=== PATIENT | male | born 1990 | race Caucasian/White ===

== ENCOUNTER 2024-11-18 08:22 | Day surgery (SDC) | payer BC, SELFPAY ==
[2024-11-18] VITALS (8 sets, daily range): BP systolic 125–147; BP diastolic 75–87; PULSE 67–85; RESP 16; TEMP 36.1–36.6; O2SAT 95–100; BMI 30.3
--- NOTE | 2024-11-18 08:47 | EKG12_ITS ---
Test Reason : PRE OP Blood Pressure : */* mmHG Vent. Rate : 67 BPM Atrial Rate : 67 BPM P-R Int : 130 ms QRS Dur : 78 ms QT Int : 392 ms P-R-T Axes : 60 37 35 degrees QTcB Int : 414 ms Normal sinus rhythm Normal ECG No previous ECGs available Confirmed by GALLO CARRANZA, STEVE ([id number]), photograph editor JASMEET PADGETT ([id number]) on 11/19/2024 7:56:27 AM Referred By: Junaid English Confirmed By: STEVE HOLDER MD
--- NOTE | 2024-11-18 08:47 | EKG12_ITS ---
Test Reason : PRE OP Blood Pressure : */* mmHG Vent. Rate : 67 BPM Atrial Rate : 67 BPM P-R Int : 130 ms QRS Dur : 78 ms QT Int : 392 ms P-R-T Axes : 60 37 35 degrees QTcB Int : 414 ms Normal sinus rhythm Normal ECG No previous ECGs available Confirmed by GALLO CARRANZA, STEVE ([id number]), editor in chief JASMEET PADGETT ([id number]) on 11/19/2024 7:56:27 AM Referred By: Junaid English Confirmed By: STEVE HOLDER MD
[2024-11-18] MEDS: Lactated Ringers 1,000 ML 15 ML IV ×2 (09:19→12:32)
[2024-11-18] MEDS: INDOCYANINE GREEN 3.75 MG in Syringe 1.5 ML 999 MG IV (09:19)
--- NOTE | 2024-11-18 09:34 | PCM.PRE.AN2 ---
ASA Classification* ASA Classification ASA Classification: 1 Assessment & Plan Anesthesia* Anesthesia Assessment Anesthesia Assessment: Discussed sedation and/or anesthesia options, risks, benefits, and alternatives with patient/parents/legal guardian/POA. Questions invited. The patient/parents/legal guardian/POA seems to understand and agrees to proceed with anesthesia plan. Reviewed the physical assessment, medical history, allergy history and patient home medications list prior to surgery/procedure/anesthetic and documented any changes. Performed airway and anesthesia risk assessments. Anesthesia Type Anesthesia Type: General History Source History Obtained from:: Patient and Chart Anesthesia Focused Assessment* Temperature: 98 F Pulse Rate: 70 Blood Pressure: 125/75 Respiratory Rate: 16 Pulse Ox: 100 Oxygen Delivery Method: Room Air Airway Assessment Mouth opens: >3 cm Mallampati Score: I Teeth Condition: Intact Neck Range of motion (ROM): Full ROM Labs Anesthesia Preop lab: CBC CHEMISTRY COAG Pre-Assessment Diagnosis/Proposed Procedure Planned Operative Procedure(s): Robotic Cholecystectomy w/grams Anesthesia History Anesthesia History - clinical nutritionist: Anesthesia History - clinical nutritionist Hx Hospitalization No 11/04/24 15:21 Any Problems With Anesthesia No 11/04/24 15:21 Cholinesterase deficiency No 11/04/24 15:21 You/Your Family Experience No 11/04/24 15:21 fever (hyperthermia) with Relationship Recent Exposure to Contagious No 11/18/24 08:55 Disease Does patient have nerve No 11/04/24 15:21 stimulator Patient instructed to have device shut off --Does patient have Pacemaker No 11/18/24 08:55 or ICD? When Was Last Pacemaker Check QUESTION #4 FULL TEXT: You/Your Family Experience fever (hyperthermia) with Anesthesia Last Oral Intake Last Oral intake: Last Oral Intake NPO since 22:30 11/18/24 08:55 Meds taken in AM with sips of water? Meds patient instructed to take am of surgery Any additional information?: Yes NPO since: 06:00 (Patient has sips of water at 6 AM.) Meds taken in AM with sips of water?: No PONV PONV - clinical nutritionist: PONV - clinical nutritionist Female No 11/04/24 15:21 HX of Motion Sickness No 11/04/24 15:21 HX of N/V After Surgery No 11/04/24 15:21 Non-Smoker Yes 11/04/24 15:21 Duration of Surgery greater Yes 11/04/24 15:21 than 60 minutes Number of Risk Factors 2 11/04/24 15:21 PONV Score Moderate Risk 11/04/24 15:21 Height & Weight Height & Weight: Anesthesia: Height & Weight Height 5 ft 10 in 11/18/24 08:55 Weight: 96 kg 11/18/24 08:55 Body Mass Index (BMI) 30.3 11/18/24 08:55 Respiratory Assessment Respiratory Assessment - clinical nutritionist: Respiratory Tract Infection Hx - clinical nutritionist Hx Respiratory Tract Infection No 11/04/24 15:21 STOP Sleep Apnea STOP Sleep Apnea - clinical nutritionist: STOP Sleep Apnea - clinical nutritionist Hx Hypertension No 11/04/24 15:21 Hx Sleep Apnea No 11/04/24 15:21 CPAP BIPAP Do you snore loudly (louder No 11/04/24 15:21 than talking or can be heard Do you often feel tired/ No 11/04/24 15:21 fatigued/ sleepy during daytime? Has anyone observed you stop No 11/04/24 15:21 breathing during sleep? STOP Results Negative 11/04/24 15:21 QUESTION #5 FULL TEXT : Do you snore loudly (louder than talking or can be heard through closed doors)? Tobacco Use History Tobacco Use History - clinical nutritionist: Tobacco Use History - clinical nutritionist Tobacco Use Smoking Status Never smoker 11/04/24 15:21 Hx Tobacco Use No 11/04/24 15:21 Years Smoking Packs Smoked per Day Smoking Cessation Date was within the last 15 years Hx Smoking Cessation Date Hx Smoking Cessation Counseling Hematologic Medial History Hematologic Hx - clinical nutritionist: Hematologic Medical Hx - handkerchief folder Hx of Blood Transfusion No 11/04/24 15:21 Hx of Transfusion in last 3 No 11/04/24 15:21 Months Date of Last Transfusion (if within last 3 months) Ever experience any problems No 11/04/24 15:21 with transfusion(s)? Specify any problems Hx of Preganancy in last 3 N/A 11/04/24 15:21 Months Nurse Filling Out Transfusion VCHRISTIN 11/04/24 15:21 & Questions: Date: 11/04/24 11/04/24 15:21 Time: 15:22 11/04/24 15:21 Patient unable to answer at this time (ie. confused, unrespo /Reproduction History /Reproductive History - clinical nutritionist: /Reproductive Hx- clinical nutritionist Hx Now No 11/04/24 15:21 Gestational Age (in weeks): EDC: Hx Hx Para Hx Section SAB No 11/04/24 15:21 Active Medications Active Medications: Current Medications Generic Name Dose Route Start Last Admin Trade Name Freq PRN Reason Stop Dose Admin Lactated Ringer's 1,000 mls @ 15 mls/hr 11/18/24 08:45 11/18/24 09:19 IV 15 mls/hr .Q48H QUINCY Administration PFSH Medical History Wears glasses Non-smoker Cholelithiasis Anxiety Home Medications ?Medication ?Instructions ?Recorded ?Last Taken ?Type ascorbic acid (vitamin C) 500 mg 500 mg PO QDAY PRN cold symptoms 10/30/24 Unknown History tablet fluvoxamine 100 mg tablet 100 mg PO QHS 10/30/24 Unknown History Allergy/AdvReac Type Severity Reaction Status Date / Time No Known Allergies Allergy Verified 11/18/24 08:54 Family History Grandfather Cancer lymphoma Surgical History S/P tonsillectomy Social History Smoking Status: Never smoker alcohol intake: never Review of Systems (Anesthesia) ROS Narrative System reviewed and no additional complaints, except as documented.
--- NOTE | 2024-11-18 09:34 | PCM.PRE.AN2 ---
ASA Classification* ASA Classification ASA Classification: 1 Assessment & Plan Anesthesia* Anesthesia Assessment Anesthesia Assessment: Discussed sedation and/or anesthesia options, risks, benefits, and alternatives with patient/parents/legal guardian/POA. Questions invited. The patient/parents/legal guardian/POA seems to understand and agrees to proceed with anesthesia plan. Reviewed the physical assessment, medical history, allergy history and patient home medications list prior to surgery/procedure/anesthetic and documented any changes. Performed airway and anesthesia risk assessments. 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 When Was Last Pacemaker Check QUESTION #4 FULL TEXT: You/Your Family Experience fever (hyperthermia) with Anesthesia Last Oral Intake Last Oral intake: Last Oral Intake NPO since 22:30 11/18/24 08:55 Meds taken in AM with sips of water? Meds patient instructed to take am of surgery Any additional information?: Yes NPO since: 06:00 (Patient has sips of water at 6 AM.) Meds taken in AM with sips of water?: No PONV PONV - machine gun mechanic: PONV - machine gun mechanic Female No 11/04/24 15:21 HX of Motion Sickness No 11/04/24 15:21 HX of N/V After Surgery No 11/04/24 15:21 Non-Smoker Yes 11/04/24 15:21 Duration of Surgery greater Yes 11/04/24 15:21 than 60 minutes Number of Risk Factors 2 11/04/24 15:21 PONV Score Moderate Risk 11/04/24 15:21 Height & Weight Height & Weight: Anesthesia: Height & Weight Height 5 ft 10 in 11/18/24 08:55 Weight: 96 kg 11/18/24 08:55 Body Mass Index (BMI) 30.3 11/18/24 08:55 Respiratory Assessment Respiratory Assessment - machine gun mechanic: Respiratory Tract Infection Hx - machine gun mechanic Hx Respiratory Tract Infection No 11/04/24 15:21 STOP Sleep Apnea STOP Sleep Apnea - machine gun mechanic: STOP Sleep Apnea - machine gun mechanic Hx Hypertension No 11/04/24 15:21 Hx Sleep Apnea No 11/04/24 15:21 CPAP BIPAP Do you snore loudly (louder No 11/04/24 15:21 than talking or can be heard Do you often feel tired/ No 11/04/24 15:21 fatigued/ sleepy during daytime? Has anyone observed you stop No 11/04/24 15:21 breathing during sleep? STOP Results Negative 11/04/24 15:21 QUESTION #5 FULL TEXT : Do you snore loudly (louder than talking or can be heard through closed doors)? 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 Specify any problems Hx of Preganancy in last 3 N/A 11/04/24 15:21 Months Nurse Filling Out Transfusion VCHRISTIN 11/04/24 15:21 & Questions: Date: 11/04/24 11/04/24 15:21 Time: 15:22 11/04/24 15:21 Patient unable to answer at this time (ie. confused, unrespo /Reproduction History /Reproductive History - machine gun mechanic: /Reproductive Hx- machine gun mechanic Hx Now No 11/04/24 15:21 Gestational Age (in weeks): EDC: Hx Hx Para Hx Section SAB No 11/04/24 15:21 Active Medications Active Medications: Current Medications Generic Name Dose Route Start Last Admin Trade Name Freq PRN Reason Stop Dose Admin Lactated Ringer's 1,000 mls @ 15 mls/hr 11/18/24 08:45 11/18/24 09:19 IV 15 mls/hr .Q48H QUINCY Administration PFSH Medical History Wears glasses Non-smoker Cholelithiasis Anxiety Home Medications ?Medication ?Instructions ?Recorded ?Last Taken ?Type ascorbic acid (vitamin C) 500 mg 500 mg PO QDAY PRN cold symptoms 10/30/24 Unknown History tablet fluvoxamine 100 mg tablet 100 mg PO QHS 10/30/24 Unknown History Allergy/AdvReac Type Severity Reaction Status Date / Time No Known Allergies Allergy Verified 11/18/24 08:54 Family History Grandfather Cancer lymphoma Surgical History S/P tonsillectomy Social History Smoking Status: Never smoker alcohol intake: never Review of Systems (Anesthesia) ROS Narrative System reviewed and no additional complaints, except as documented.
--- NOTE | 2024-11-18 09:53 | PCM.HP.STD ---
HPI - General General Date of Admission: 11/18/24 Date of Service: 11/18/24 Chief Complaint: Right upper quadrant pain and gallstones HPI Narrative STEVE NG, is a 34 M who presents today for elective robotic cholecystectomy. Patient was in the emergency room several weeks ago with right upper quadrant pain and gallstones. He was discharged home and presented to my office to discuss cholecystectomy. I offered him a robotic cholecystectomy. We discussed the details of the planned procedure and he wished to proceed. [facility] Medical History Wears glasses Non-smoker Cholelithiasis Anxiety Home Medications ?Medication ?Instructions ?Recorded ?Last Taken ?Type ascorbic acid (vitamin C) 500 mg 500 mg PO QDAY PRN cold symptoms 10/30/24 Unknown History tablet fluvoxamine 100 mg tablet 100 mg PO QHS 10/30/24 Unknown History Allergy/AdvReac Type Severity Reaction Status Date / Time No Known Allergies Allergy Verified 11/18/24 08:54 Family History Grandfather Cancer lymphoma Surgical History S/P tonsillectomy Social History Smoking Status: Never smoker alcohol intake: never Vital Signs Vital Signs Vital Signs: 11/18/24 08:55 11/18/24 08:55 11/18/24 09:39 Temperature 98 F 98 F Temperature Source Temporal Pulse Rate 70 70 Respiratory Rate 16 16 Respiratory Pattern Normal Blood Pressure 125/75 H 125/75 H Blood Pressure Mean 91 Blood Pressure Source Monitor Blood Pressure Position Semi-Fowlers Blood Pressure Location Left Arm Pulse Ox 100 100 Oxygen Delivery Method Room Air Room Air Weight Weight: 211 lb 10.3 oz Body Mass Index (BMI) 30.3 Physical Exam Const alert and oriented x3 Assessment & Plan Assessment/Plan (1) Cholelithiasis: PLAN: Plan The patient is a 34-year-old male with symptomatic cholelithiasis. I have offered him a robotic cholecystectomy. All questions and concerns were addressed. Surgery will proceed shortly Charges/Coding Visit Charges Inpatient E&M: 39873 Init Hosp L2
--- NOTE | 2024-11-18 10:00 | GALL_PTH ---
PATIENT: STEVE NG LOC: [facility] [place] U#:[id number] AGE/SX: 34/M ROOM: RE11/18/[address]: Dr. Junaid English MD : 1990 BED: DIS: 11/18/2024 SPEC #: [id number] RECD: 11/18/24 12:36 STATUS: PEDRITO REBuddy #: [id number] GIOVANNA: 11/18/24 10:[address]: Junaid English DEPT: SURGICAL PATHOLOGY RECD BY: Shekhar Coon Tissues: A - Gallbladder, NOS Procedures: Surgery Specimen Level III HEADER OPERATION: Laparoscopic robotic cholecystectomy PRE-OP DIAGNOSIS: Cholelithiasis TISSUE SUBMITTED: A- Gallbladder MICROSCOPIC DIAGNOSIS A. Gallbladder, cholecystectomy: * Cholecystolithiasis * Chronic hypertrophic cholecystitis MICROSCOPIC DESCRIPTION Slides are reviewed. GROSS DESCRIPTION A. Received in formalin and labeled with the patient's name and date of . Designated as gallbladder is a 6.5 x 2.6 x 0.7 cm arce-pink to purple, shaggy and disrupted gallbladder with attached cystic duct (inked black, shaved); the patency is unable to be determined. A 0.4 cm lymph node is present. There are innumerable irregular yellow biliary calculi free-floating within the container, <0.1 cm to 0.5 cm. The mucosa is pink-red and granular with focal, possible adhesions and patchy necrosis; the wall measures up to 0.3 cm thick. Cholesterolosis is not present. Wire Coating Machine Operator sections are submitted in 1 cassette. [place] 11/18/2024 CPT:54328
--- NOTE | 2024-11-18 10:00 | GALL_PTH ---
PATIENT: STEVE NG LOC: [facility] [place] U#:[id number] AGE/SX: 34/M ROOM: RE11/18/[address]: Dr. Junaid English MD : 1990 BED: DIS: 11/18/2024 SPEC #: [id number] RECD: 11/18/24 12:36 STATUS: PEDRITO REBuddy #: [id number] GIOVANNA: 11/18/24 10:[address]: Junaid English DEPT: SURGICAL PATHOLOGY RECD BY: Shekhar Coon Tissues: A - Gallbladder, NOS Procedures: Surgery Specimen Level III HEADER OPERATION: Laparoscopic robotic cholecystectomy PRE-OP DIAGNOSIS: Cholelithiasis TISSUE SUBMITTED: A- Gallbladder MICROSCOPIC DIAGNOSIS A. Gallbladder, cholecystectomy: * Cholecystolithiasis * Chronic hypertrophic cholecystitis MICROSCOPIC DESCRIPTION Slides are reviewed. GROSS DESCRIPTION A. Received in formalin and labeled with the patient's name and date of . Designated as gallbladder is a 6.5 x 2.6 x 0.7 cm arce-pink to purple, shaggy and disrupted gallbladder with attached cystic duct (inked black, shaved); the patency is unable to be determined. A 0.4 cm lymph node is present. There are innumerable irregular yellow biliary calculi free-floating within the container, <0.1 cm to 0.5 cm. The mucosa is pink-red and granular with focal, possible adhesions and patchy necrosis; the wall measures up to 0.3 cm thick. Cholesterolosis is not present. Recorder Helper Seismograph sections are submitted in 1 cassette. [place] 11/18/2024 CPT:26880
[2024-11-18] MEDS: Midazolam 2 MG/2 ML Syringe IV (10:22)
[2024-11-18] MEDS: Lidocaine 1% (5 ml sdv) 5 ML Vial IV (10:26)
[2024-11-18] MEDS: Lactated Ringers 1,000 ML 1000 ML IV (10:28)
[2024-11-18] MEDS: fentaNYL 100 MCG/2 ML Ampul IV (11:40)
--- NOTE | 2024-11-18 11:46 | EX.PCM.DISCH ---
Discharge Instructions Diet Discharge Diet: Light diet - advance as tolerated Activity Discharge Activity: Return to Normal Activity and May Shower May shower in (days): 1 Ice area for (Minutes): 30 Lifting Restrictions: No lifting pushing or pulling more than 20 pounds for 4 weeks Dressing / Incision Call your doctor if your incision/area has: Continuous Slow Oozing, Sudden Increased Bleeding, Increased Pain/ Swelling, Increased Redness, Foul Smelling Discharge and Swelling at the incision site Call your doctor if you observe: Fever of 101 or Higher Cleanse incision/area with: Soap & Water Follow Up Care Please Follow Up With: Junaid English MD When: 2 weeks. Please call office to schedule appointment Test Results: Test results from this visit will be discussed in further detail at your follow-up appointment, if applicable. Discharge Plan Admission Primary Reason for Your Visit: Robotic cholecystectomy Attending Provider: Junaid English Primary Care Provider: STEVE INGRAM Instructions Print Language: Citizen Of [place] Discharge Orders/Prescriptions Prescriptions: New oxycodone 5 mg tablet 5 mg PO Q8H PRN (Reason: pain) 3 Days Qty: 12 0RF Continued fluvoxamine 100 mg tablet 100 mg PO QHS ascorbic acid (vitamin C) 500 mg tablet 500 mg PO QDAY PRN (Reason: cold symptoms) Referrals / Follow Up: STEVE INGRAM [Other] Disposition Disposition (needs filled in before D/C Order can be placed): Home, Self Care
--- NOTE | 2024-11-18 11:49 | OP.PCM_ITS ---
Procedures Digestive 40xxx-49xxx: 56870 Laparo cholecystectomy/graph Operative Report (Standard) Operative Information Date of Procedure: 11/18/24 Pre-Operative Diagnosis: Symptomatic cholelithiasis Post-Operative Diagnosis: Same Surgery/Procedure Performed: Robotic cholecystectomy with ICG cholangiograms office clerk assistant: Yes Cisco Network Architect: Justin Soto Tasks completed by operator/assistant foreman: Closing, Trocar, Retracting and Other Additional veterinary technician assistant?: No Type of Anesthesia: General and Local RN Documented Start/Stop Times: Operation Date: 11/18/24 10:00 Case Time Into Pre-Op 11/18/24 08:32 Out of Pre-Op 11/18/24 10:18 Anesthesia Start 11/18/24 10:22 Into Room 11/18/24 10:22 Procedure Start 11/18/24 10:46 Procedure Start Time: 10:46 Procedure Stop Time: 11:57 Select all DRAINS/GRAFTS/IMPLANTS that apply: None Estimated Blood Loss: 5 mL Specimen collected: Yes Description of specimen(s) removed: Gallbladder and contents Description of surgery: The patient is a 34-year-old male who is recently seen through the office with right upper quadrant pain and gallstones. He presented to an outside emergency room weeks prior with acute cholecystitis/cholelithiasis. Ultrasound at that time showed a thickened gallbladder wall. His white count was 18,000. He was discharged to home. He followed up with me in the office. I offered him a robotic cholecystectomy. He was not having any significant symptoms in the office and states he has actually been symptom-free since his initial gallbladder attack. I offered him a robotic cholecystectomy as treatment. We discussed the details of the planned procedure and he wished to proceed. He was brought to the operating today following informed consent. He was placed supine the operative table with arms outstretched and arm boards. A general endotracheal anesthesia was induced. His arms were then comfortably tucked at his sides. His abdomen was then prepped and draped in the usual sterile manner. A 8 mm incision was made just below the umbilicus which a 5 mm trocar was placed optically. This was placed without incident. Once in place the abdomen is then fully insufflated with CO2 gas and 8 mm trocar was then placed under direct visualization on the right side of the abdomen. 2 additional 8 mm trocars were placed in the left upper quadrant. The original 5 mm trocar was switched to an 8 mm robotic trocar. The da Sameer robot was then wheeled into position. All ports were docked. Prior to doing so the patient was positioned with some head up and rolled to the left to improve visualization. The gallbladder was identified on the undersurface of the liver. There was adhesions involving the entire undersurface of the liver. Fortunately these peeled down quite easily. The gallbladder was grasped at the fundus and was reflected up and over the liver. The adhesions were taken down carefully using electrocautery on the L-hook. The peritoneum on either side of the gallbladder was then incised using electrocautery and the hook as well. This provided greater mobility to the gallbladder. The cystic duct and cystic artery were then dissected out. ICG cholangiograms were performed and showed clearly the cystic duct. The lower aspect of the gallbladder was dissected off of the liver bed such that a critical view of safety was able to be obtained such that it 2 and only 2 structures were going to and from the gallbladder. Clips were placed proximally and distally on the cystic duct and cystic artery. These were then transected. The gallbladder was then cauterized off of the undersurface of the liver. There was some spillage of bile and stones however this was promptly suctioned out and eventually irrigated with a total of 2 L of saline until clear. The gallbladder and contents were then placed into a bag and brought out through the umbilical trocar site. We did need to extend the fascia a bit to get the gallbladder out of the abdomen. The fascial defect was closed using 0 PDS with the aid of the fascial closure device. This closed the fascia nicely. The remaining trocars were opened up. Insufflation was allowed to escape. 4-0 Vicryl was used to close the skin incisions along with skin glue. Patient was awakened anesthesia and taken recovery in good condition Surgical Findings: Normal ICG cholangiograms; adhesions involving undersurface of gallbladder Complications Complications: No Admit VTE Documentation VTE Present on Admission: No VTE Mechan Device Prophylaxis: SCD's VTE Pharm Prophylaxis ordered?: No Reason prophylaxis not ordered: Treatment Not Indicated
[2024-11-18] MEDS: Bupiv/Epi 0.25% 30 ML Vial (11:50)
--- NOTE | 2024-11-18 12:09 | PCM.POST.ANE ---
Anesthesia: Postop Eval I Current Vital Signs Temperature: 97.2 F Pulse Rate: 85 Blood Pressure: 141/80 Respiratory Rate: 16 Pulse Ox: 97 Oxygen Delivery Method: Room Air Assessment Airway patent: Yes Spontaneous unlabored respirations: Yes Mental status: Awake and Calm nausea: No Vomiting: No Anesthesia Complication: No Fluid Hydration Crystalloid volume administer (ml): 1,000 Total IV fluid infused: 1,000 Progress Note Anesthesia document: Postop Eval 1 completed: Yes
--- NOTE | 2024-11-18 14:20 | POSTOPAN2_ITS ---
Anesthesia Postop Eval I Sum Postop Eval Completion status Anesthesia document: Postop Eval 1 completed: Yes Anesthesia Postop Eval I Summary Anesthesia Postop Eval I Summary: Anesthesia Postop Eval I: Assessment Summary Airway patent Yes 11/18/24 12:10 PRACTICE [email or web address] Spontaneous unlabored Yes 11/18/24 12:10 PRACTICE ARCHITECT.JDEF respirations Mental status Awake,Calm 11/18/24 12:10 PRACTICE ARCHITECT.JDEF nausea No 11/18/24 12:10 PRACTICE ARCHITECT.JDEF Vomiting No 11/18/24 12:10 PRACTICE ARCHITECT.JDEF Anesthesia Postop Eval I: Fluid Summary Crystalloid volume administer 1,000 11/18/24 12:10 PRACTICE ARCHITECT.JDEF (ml) Colloids volume administered ( ml) Blood Product volume administered (ml) Total IV fluid infused 1,000 11/18/24 12:10 PRACTICE ARCHITECT.JDEF Anesthesia Postop Eval I: Summary Notes Anesthesia Complication No 11/18/24 12:10 PRACTICE ARCHITECT.JDEF Anesthesia Complication Comment: Post-operative progress note Anesthesia: Postop Eval II Evaluation Mental status: Awake and Calm Pain Level: 2 nausea: Yes Vomiting: Yes Progress Note Post-operative progress note: medicated per RN with relief Complications Anesthesia Complication: No
--- NOTE | 2024-11-18 14:20 | POSTOPAN2_ITS ---
Anesthesia Postop Eval I Sum Postop Eval Completion status Anesthesia document: Postop Eval 1 completed: Yes Anesthesia Postop Eval I Summary Anesthesia Postop Eval I Summary: Anesthesia Postop Eval I: Assessment Summary Airway patent Yes 11/18/24 12:10 PEST CONTROL [email or web address] Spontaneous unlabored Yes 11/18/24 12:10 PEST CONTROL PILOT.JDEF respirations Mental status Awake,Calm 11/18/24 12:10 PEST CONTROL PILOT.JDEF nausea No 11/18/24 12:10 PEST CONTROL PILOT.JDEF Vomiting No 11/18/24 12:10 PEST CONTROL PILOT.JDEF Anesthesia Postop Eval I: Fluid Summary Crystalloid volume administer 1,000 11/18/24 12:10 PEST CONTROL PILOT.JDEF (ml) Colloids volume administered ( ml) Blood Product volume administered (ml) Total IV fluid infused 1,000 11/18/24 12:10 PEST CONTROL PILOT.JDEF Anesthesia Postop Eval I: Summary Notes Anesthesia Complication No 11/18/24 12:10 PEST CONTROL [email or web address] Anesthesia Complication Comment: Post-operative progress note Anesthesia: Postop Eval II Evaluation Mental status: Awake and Calm Pain Level: 2 nausea: Yes Vomiting: Yes Progress Note Post-operative progress note: medicated per RN with relief Complications Anesthesia Complication: No
--- NOTE | 2024-11-18 14:20 | PCM.POSTANE2 ---
Anesthesia Postop Eval I Sum Postop Eval Completion status Anesthesia document: Postop Eval 1 completed: Yes Anesthesia Postop Eval I Summary Anesthesia Postop Eval I Summary: Anesthesia Postop Eval I: Assessment Summary Airway patent Yes 11/18/24 12:10 RESIDENTIAL TEAM [email or web address] Spontaneous unlabored Yes 11/18/24 12:10 RESIDENTIAL TEAM LEADER.JDEF respirations Mental status Awake,Calm 11/18/24 12:10 RESIDENTIAL TEAM LEADER.JDEF nausea No 11/18/24 12:10 RESIDENTIAL TEAM LEADER.JDEF Vomiting No 11/18/24 12:10 RESIDENTIAL TEAM LEADER.JDEF Anesthesia Postop Eval I: Fluid Summary Crystalloid volume administer 1,000 11/18/24 12:10 RESIDENTIAL TEAM LEADER.JDEF (ml) Colloids volume administered ( ml) Blood Product volume administered (ml) Total IV fluid infused 1,000 11/18/24 12:10 RESIDENTIAL TEAM LEADER.JDEF Anesthesia Postop Eval I: Summary Notes Anesthesia Complication No 11/18/24 12:10 RESIDENTIAL TEAM LEADER.JDEF Anesthesia Complication Comment: Post-operative progress note Anesthesia: Postop Eval II Evaluation Mental status: Awake and Calm Pain Level: 2 nausea: Yes Vomiting: Yes Progress Note Post-operative progress note: medicated per RN with relief Complications Anesthesia Complication: No
--- NOTE | 2024-11-18 14:20 | PCM.POSTANE2 ---
Anesthesia Postop Eval I Sum Postop Eval Completion status Anesthesia document: Postop Eval 1 completed: Yes Anesthesia Postop Eval I Summary Anesthesia Postop Eval I Summary: Anesthesia Postop Eval I: Assessment Summary Airway patent Yes 11/18/24 12:10 CODING ADVISOR.[email or web address] Spontaneous unlabored Yes 11/18/24 12:10 CODING ADVISOR.JDEF respirations Mental status Awake,Calm 11/18/24 12:10 CODING ADVISOR.JDEF nausea No 11/18/24 12:10 CODING ADVISOR.JDEF Vomiting No 11/18/24 12:10 CODING ADVISOR.JDEF Anesthesia Postop Eval I: Fluid Summary Crystalloid volume administer 1,000 11/18/24 12:10 CODING ADVISOR.JDEF (ml) Colloids volume administered ( ml) Blood Product volume administered (ml) Total IV fluid infused 1,000 11/18/24 12:10 CODING ADVISOR.JDEF Anesthesia Postop Eval I: Summary Notes Anesthesia Complication No 11/18/24 12:10 CODING ADVISOR.JDEF Anesthesia Complication Comment: Post-operative progress note Anesthesia: Postop Eval II Evaluation Mental status: Awake and Calm Pain Level: 2 nausea: Yes Vomiting: Yes Progress Note Post-operative progress note: medicated per RN with relief Complications Anesthesia Complication: No
== END 2024-11-18 14:19 | disposition home or self-care (01) ==
LOC: SDC 08:31 → AC 08:32
PROVIDERS: Referring Provider Surgery; Visit Provider Surgery
PROC: 0FT44ZZ Resection of Gallbladder, Percutaneous Endoscopic Approach (ICD-10-PCS; CPT 47562; principal; 2024-11-18 09:40)
DX: K80.10 Calculus of gallbladder with chronic cholecystitis without obstruction (principal); F41.9 Anxiety disorder, unspecified; Z79.899 Other long term (current) drug therapy
CPT/HCPCS: 47563; S2900; 00790; 88304; 93005; J2405